=== PATIENT | female | born 1955 | race Two or more races ===

== ENCOUNTER 2020-06-02 23:14 | Emergency (ER) | payer MEDICAID ==
[~2020-06-02] VITALS: Ht 157.5 cm; Wt 65.1 kg
[2020-06-03] MEDS ORDERED: LIDOCAINE 1%-EPI 1:100K, 20ML SQ ONE
[2020-06-03] MEDS ORDERED: LIDOCAINE-MPF 1%, 5ML ONE (00:08)
[2020-06-03] MEDS ORDERED: DIPH,PERTUSS(ACELL),TET VAC/PF 0.5 ML IM-VACC ONE ×2 (00:08)
--- NOTE | 2020-06-03 00:33 | NUR ---
PT BIB HER SON-IN-LAW WHO REMAINS AT BEDSIDE TO TRANSLATE. PT LAYING IN BED, NO SIGNS OF ACUTE DISTRESS. WOUND CLEANED AND ERP TO BEDSIDE TO SUTURE. ALL QUESTIONS ANSWERED.
[2020-06-03] MEDS ORDERED: NEOSPORIN OINT. PKT 1 PACKET ONE (01:08)
[2020-06-03 01:13] VITALS: BP 150/104
--- NOTE | 2020-06-03 01:16 | NUR ---
ERP MADE AWARE OF VS. NO ORDERS AT THIS TIME.
== END 2020-06-03 01:58 | disposition home or self-care (01) ==
LOC: ED 06-03 01:30
DX: S01.81XA Laceration without foreign body of other part of head, initial encounter (principal); G89.11 Acute pain due to trauma; R51 Headache; M25.532 Pain in left wrist; I10 Essential (primary) hypertension; W01.0XXA Fall on same level from slipping, tripping and stumbling without subsequent striking against object, initial encounter; Y93.89 Activity, other specified; Y92.098 Other place in other non-institutional residence as the place of occurrence of the external cause; Y99.8 Other external cause status
CPT/HCPCS: 12051; 90471; 90715; 99284